=== PATIENT | female | born 1955 | race African-American/Black ===

== ENCOUNTER 2017-07-21 11:50 | Emergency (ER) | payer OTHER ==
[~2017-07-21] VITALS: Ht 165.1 cm; Wt 81.6 kg
[2017-07-21 11:53] VITALS: Ht 165.1 cm; Wt 81.6 kg
[2017-07-21 16:27] VITALS: BP 149/78
== END 2017-07-21 16:27 | disposition home or self-care (01) ==
LOC: ED 11:50
DX: S43.401A Unspecified sprain of right shoulder joint, initial encounter (principal); I10 Essential (primary) hypertension; Z88.0 Allergy status to penicillin; W01.0XXA Fall on same level from slipping, tripping and stumbling without subsequent striking against object, initial encounter; Y93.89 Activity, other specified; Y92.89 Other specified places as the place of occurrence of the external cause; Y99.8 Other external cause status
CPT/HCPCS: J2250